=== PATIENT | male | born 1960 | race Caucasian/White ===

== ENCOUNTER 2021-04-22 11:16 | Inpatient (IN) | payer SELFPAY ==
[~2021-04-22] VITALS: Ht 170.2 cm; Wt 74.8 kg
[2021-04-22] MEDS ORDERED: SODIUM CHLORIDE 0.9% 1000ML 1,000 ML IV STA ×2 (11:28→13:10)
[2021-04-22] MEDS ORDERED: MORPHINE SULFATE INJ 4 MG/ML INJ 1ML IV NR (11:30)
[2021-04-22] MEDS ORDERED: ONDANSETRON HCL INJ 2MG/ML 2ML 2 MG/ML VIAL IV NR ×2 (11:30→13:10)
[2021-04-22] MEDS ORDERED: ONDANSETRON HCL INJ 2MG/ML 2ML 2 MG/ML VIAL ONE ×2 (11:46→13:17)
[2021-04-22 11:51] LABS: BASOPHILS # (AUTO) 0.1 (0.0-0.1); BASOPHILS % 0.7 % (0.0-1.0); EOSINOPHILS # (AUTO) 0.1 (0.0-0.4); EOSINOPHILS % 0.3 % (0.0-6.0); HEMATOCRIT 50.1 % (38.2-49.6); HEMOGLOBIN 16.5 g/dL (14.0-18.0); LYMPHOCYTES # (AUTO) 2.3 (1.0-3.2); LYMPHOCYTES % 13.6 % (18.0-39.1); MEAN CORPUSCULAR HGB CONC 32.9 g/dL (31-35); MEAN CORPUSCULAR VOLUME 91.1 fL (81-99); MONOCYTES # (AUTO) 0.7 (0.2-0.8); NEUTROPHILS # (AUTO) 13.5 (2.1-6.9); NEUTROPHILS % 80.8 % (38.7-80.0); PLATELET COUNT 463 x10e3/uL (140-360); RED CELL DISTRIBUTION WIDTH 13.4 % (11.7-14.4)
[2021-04-22 12:18] LABS: INR 0.9; PARTIAL THROMBOPLASTIN TIME 23.5 seconds (23.8-35.5); PROTHROMBIN TIME 12.3 seconds (11.9-14.5)
[2021-04-22 12:28] LABS: ALBUMIN 4.8 g/dL (3.5-5.0); ALBUMIN/GLOBULIN RATIO 1.2 (0.8-2.0); ANION GAP 23.7 mmol/L (8-16); CALCIUM 9.5 mg/dL (8.4-10.2); CREATININE, SERUM 1.52 mg/dL (0.72-1.25); POTASSIUM 3.7 mmol/L (3.5-5.1)
[2021-04-22] MEDS ORDERED: HYDROMORPHONE 1MG/1ML INJ IV ONE (12:30)
[2021-04-22 12:35] LABS: CREATINE KINASE MB 7.2 ng/mL (0-5.0)
[2021-04-22] MEDS ORDERED: FENTANYL CITRATE/PF 100MCG/2 ML INJ ONE (12:49)
[2021-04-22] MEDS ORDERED: MIDAZOLAM HCL 2 MG/2 ML VIAL ONE (12:49)
[2021-04-22] MEDS ORDERED: SODIUM CHLORIDE 0.9% 50ML 50 ML ONE (12:51)
[2021-04-22] MEDS ORDERED: IOPAMIDOL 370 MG/ML 200 ML INFUS..BTL INJ ONE (12:52)
[2021-04-22 12:59] LABS: CHOL/HDL RATIO 2.3 (3.9-4.7)
[2021-04-22] MEDS ORDERED: HYDROMORPHONE 1MG/1ML INJ IV NR (13:10)
[2021-04-22] MEDS ORDERED: PIPERACILLIN/TAZOBACTAM 3.375 GM in SODIUM CHLORIDE 0.9% 50ML 50 ML IV ONE (13:15)
[2021-04-22] MEDS ORDERED: POVIDONE IODINE 0.05% 0.05 % ML PO ONE (13:17)
[2021-04-22] MEDS ORDERED: LIDOCAINE HCL 2% LOCAL INJ 5 ML SDV VIAL INJ ONE (13:17)
[2021-04-22] MEDS ORDERED: GLYCOPYRROLATE INJ 0.2 MG/ML VIAL ONE (13:17)
[2021-04-22] MEDS ORDERED: DEXAMETHASONE SOD PHOS INJ 4 MG/ML VIAL ONE (13:17)
[2021-04-22] MEDS ORDERED: SEVOFLURANE INHAL SOLN 250 ML PEN BTL ONE (13:17)
[2021-04-22] MEDS ORDERED: PROPOFOL IV EMULSION 10 MG/ML 20 ML VIAL ONE (13:17)
[2021-04-22] MEDS ORDERED: NEOSTIGMINE 1 MG/ML 10ML VIAL ONE (13:17)
[2021-04-22] MEDS ORDERED: SUCCINYLCHOLINE CHLORIDE 20 MG/ML 10ML VIAL ONE (13:17)
[2021-04-22] MEDS ORDERED: ROCURONIUM BROMIDE 10 MG/ML 5ML VIAL IV ONE (13:17)
[2021-04-22] MEDS ORDERED: SODIUM CHLORIDE 0.9% 1000ML 1,000 ML IV SCH (13:30)
[2021-04-22 14:34] LABS: CLARITY,URINE CLEAR (CLEAR); COLOR,URINE YELLOW (YELLOW)
[2021-04-22 14:36] LABS: KETONES,URINE NEGATIVE (NEGATIVE); LEUKOCYTE ESTERASE ,URINE NEGATIVE (NEGATIVE); NITRITE,URINE NEGATIVE (NEGATIVE); PROTEIN,URINE DIPSTICK 1+ (NEGATIVE); URINE UROBILINOGEN 0.2 mg/dL (0.2 - 1)
[2021-04-22 14:37] LABS: BACTERIA,URINE RARE /HPF; EPITHELIAL CELLS,URINE FEW /LPF; RBC,URINE 0-5 /HPF (0-5); WBC,URINE (MAN) 0-5 /HPF (0-5)
[2021-04-22 14:38] LABS: AMPHETAMINES SCREEN,URINE NEGATIVE (NEGATIVE); BENZODIAZEPINES SCREEN,URINE NEGATIVE (NEGATIVE); PHENCYCLIDINE SCREEN,URINE NEGATIVE (NEGATIVE)
[2021-04-22] MEDS ORDERED: BUPIVACAINE HCL 0.5% INJ 30 ML VIAL INJ ONE (15:37)
[2021-04-22] MEDS: HYDROMORPHONE 1MG/1ML INJ IV PRN ×4 (15:58→23:44)
[2021-04-22] MEDS ORDERED: ACETAMINOPHEN 1000 MG/100 ML IV PRN (16:00)
[2021-04-22 16:49] VITALS: BP 169/80
[2021-04-22 16:54] VITALS: BP 169/80
[2021-04-22] MEDS: SODIUM CHLORIDE 0.9% 250ML IRRIG IR SCH ×3 (17:17→23:43)
[2021-04-22] MEDS: SODIUM CHLORIDE 0.9% 1000ML 1,000 ML IV SCH ×2 (17:17→23:32)
[2021-04-22] MEDS: PIPERACILLIN/TAZOBACTAM 3.375 GM in SODIUM CHLORIDE 0.9% 50ML 50 ML IV SCH ×2 (17:34→23:32)
[2021-04-22 18:37] LABS: CREATINE KINASE MB 5.5 ng/mL (0-5.0)
[2021-04-22 20:00] VITALS: BP 174/91
[2021-04-22 20:16] VITALS: BP_SYST 113; BP_SYST 174; BP_DIAS 71; BP_DIAS 91
[2021-04-22] MEDS ORDERED: LORAZEPAM INJ 2 MG/ML VIAL IV SCH (21:00)
[2021-04-22] MEDS ORDERED: DEXTROSE 50% SYRINGE 50 ML IV PRN (21:30)
[2021-04-22] MEDS ORDERED: MELATONIN 5 MG TABLET PO PRN (21:30)
[2021-04-22] MEDS ORDERED: DIPHENHYDRAMINE HCL 25 MG CAP PO PRN (21:30)
[2021-04-22] MEDS ORDERED: CHLORASEPTIC SPRAY 177 ML BTL MM PRN (21:30)
[2021-04-22] MEDS ORDERED: ALBUTEROL/IPRATROPIUM 3 ML NEB NEB PRN (21:30)
[2021-04-22] MEDS ORDERED: LIDOCAINE 4% PATCH TP PRN (21:30)
[2021-04-22] MEDS ORDERED: BENZONATATE 100 MG CAP PO PRN (21:30)
[2021-04-22] MEDS ORDERED: DOCUSATE SODIUM 100 MG CAP PO PRN (21:30)
[2021-04-22] MEDS ORDERED: ACETAMINOPHEN 325 MG TAB PO PRN (21:30)
[2021-04-22] MEDS ORDERED: SIMETHICONE 80 MG CHEW PO PRN (21:30)
[2021-04-22] MEDS ORDERED: HYDRALAZINE HCL 20 MG/ML VIAL IV PRN (21:30)
[2021-04-22] MEDS ORDERED: POTASSIUM CHLORIDE 20 MEQ TAB CR PO PRN (21:30)
[2021-04-23] VITALS (8 sets, daily range): BP systolic 144–170; BP diastolic 82–95
[2021-04-23 01:47] LABS: CREATINE KINASE MB 4.7 ng/mL (0-5.0)
[2021-04-23] MEDS: SODIUM CHLORIDE 0.9% 250ML IRRIG IR SCH ×6 (04:13→23:10)
[2021-04-23] MEDS: HYDROMORPHONE 1MG/1ML INJ IV PRN ×5 (05:28→21:01)
[2021-04-23] MEDS: SODIUM CHLORIDE 0.9% 1000ML 1,000 ML IV SCH ×2 (05:28→12:43)
[2021-04-23] MEDS: PIPERACILLIN/TAZOBACTAM 3.375 GM in SODIUM CHLORIDE 0.9% 50ML 50 ML IV SCH ×4 (05:28→23:10)
[2021-04-23 06:01] LABS: BASOPHILS # (AUTO) 0.1 (0.0-0.1); BASOPHILS % 0.3 % (0.0-1.0); HEMATOCRIT 43.8 % (38.2-49.6); HEMOGLOBIN 14.4 g/dL (14.0-18.0); LYMPHOCYTES # (AUTO) 1.2 (1.0-3.2); LYMPHOCYTES % 5.4 % (18.0-39.1); MEAN CORPUSCULAR HEMOGLOBIN 30.6 pg (28-32); MEAN CORPUSCULAR HGB CONC 32.9 g/dL (31-35); MEAN CORPUSCULAR VOLUME 93.2 fL (81-99); MONOCYTES % 4.5 % (4.4-11.3); NEUTROPHILS # (AUTO) 19.6 (2.1-6.9); NEUTROPHILS % 89.3 % (38.7-80.0); PLATELET COUNT 277 x10e3/uL (140-360); RED CELL DISTRIBUTION WIDTH 13.3 % (11.7-14.4)
[2021-04-23 06:30] LABS: ALBUMIN 3.2 g/dL (3.5-5.0); ALBUMIN/GLOBULIN RATIO 0.9 (0.8-2.0); CALCIUM 7.8 mg/dL (8.4-10.2); CREATININE, SERUM 0.92 mg/dL (0.72-1.25)
[2021-04-23 06:51] LABS: CREATINE KINASE MB 3.8 ng/mL (0-5.0)
[2021-04-23] MEDS: ONDANSETRON HCL INJ 2MG/ML 2ML 2 MG/ML VIAL IV PRN ×3 (08:42→16:51)
[2021-04-23] MEDS: DEXTROSE 5%/0.9% SOD CHL 1,000 ML IV SCH ×3 (15:00→23:10)
[2021-04-23] MEDS ORDERED: LORAZEPAM INJ 2 MG/ML VIAL IV ONE (21:00)
[2021-04-24] VITALS (8 sets, daily range): BP systolic 136–194; BP diastolic 76–99
[2021-04-24] MEDS: SODIUM CHLORIDE 0.9% 250ML IRRIG IR SCH ×6 (04:14→23:53)
[2021-04-24] MEDS: HYDROMORPHONE 1MG/1ML INJ IV PRN ×6 (04:20→21:17)
[2021-04-24] MEDS: PIPERACILLIN/TAZOBACTAM 3.375 GM in SODIUM CHLORIDE 0.9% 50ML 50 ML IV SCH ×4 (05:16→23:53)
[2021-04-24 07:43] LABS: BASOPHILS # (AUTO) 0.1 (0.0-0.1); BASOPHILS % 0.5 % (0.0-1.0); EOSINOPHILS # (AUTO) 0.1 (0.0-0.4); EOSINOPHILS % 0.5 % (0.0-6.0); HEMATOCRIT 44.9 % (38.2-49.6); LYMPHOCYTES # (AUTO) 1.2 (1.0-3.2); LYMPHOCYTES % 11.8 % (18.0-39.1); MEAN CORPUSCULAR HEMOGLOBIN 30.1 pg (28-32); MEAN CORPUSCULAR HGB CONC 33.4 g/dL (31-35); MEAN CORPUSCULAR VOLUME 90.2 fL (81-99); MONOCYTES # (AUTO) 0.5 (0.2-0.8); MONOCYTES % 4.9 % (4.4-11.3); NEUTROPHILS # (AUTO) 8.5 (2.1-6.9); NEUTROPHILS % 81.9 % (38.7-80.0); PLATELET COUNT 268 x10e3/uL (140-360); RED BLOOD COUNT 4.98 x10e6/uL (4.3-5.7); RED CELL DISTRIBUTION WIDTH 12.9 % (11.7-14.4)
[2021-04-24 07:59] LABS: ALBUMIN 3.3 g/dL (3.5-5.0); ALBUMIN/GLOBULIN RATIO 0.8 (0.8-2.0); ANION GAP 14.2 mmol/L (8-16); CALCIUM 8.7 mg/dL (8.4-10.2); CREATININE, SERUM 0.86 mg/dL (0.72-1.25); POTASSIUM 4.2 mmol/L (3.5-5.1)
[2021-04-24] MEDS: ONDANSETRON HCL INJ 2MG/ML 2ML 2 MG/ML VIAL IV PRN ×4 (08:15→18:24)
[2021-04-24] MEDS: DEXTROSE 5%/0.9% SOD CHL 1,000 ML IV SCH (08:47)
[2021-04-24] MEDS: LORAZEPAM INJ 2 MG/ML VIAL IV PRN (21:17)
[2021-04-24] MEDS: BISACODYL 10 MG SUPP PR SCH (21:43)
[2021-04-25] VITALS (8 sets, daily range): BP systolic 158–182; BP diastolic 92–106
[2021-04-25] MEDS: SODIUM CHLORIDE 0.9% 250ML IRRIG IR SCH ×4 (04:38→16:56)
[2021-04-25 05:06] LABS: BASOPHILS # (AUTO) 0.1 (0.0-0.1); BASOPHILS % 0.6 % (0.0-1.0); EOSINOPHILS # (AUTO) 0.3 (0.0-0.4); EOSINOPHILS % 3.2 % (0.0-6.0); HEMATOCRIT 43.8 % (38.2-49.6); HEMOGLOBIN 15.4 g/dL (14.0-18.0); LYMPHOCYTES # (AUTO) 1.3 (1.0-3.2); LYMPHOCYTES % 14.6 % (18.0-39.1); MEAN CORPUSCULAR HEMOGLOBIN 30.6 pg (28-32); MEAN CORPUSCULAR HGB CONC 35.2 g/dL (31-35); MEAN CORPUSCULAR VOLUME 87.1 fL (81-99); MONOCYTES # (AUTO) 0.5 (0.2-0.8); MONOCYTES % 5.8 % (4.4-11.3); NEUTROPHILS # (AUTO) 6.7 (2.1-6.9); NEUTROPHILS % 75.2 % (38.7-80.0); PLATELET COUNT 246 x10e3/uL (140-360); RED BLOOD COUNT 5.03 x10e6/uL (4.3-5.7); RED CELL DISTRIBUTION WIDTH 12.6 % (11.7-14.4)
[2021-04-25] MEDS: PIPERACILLIN/TAZOBACTAM 3.375 GM in SODIUM CHLORIDE 0.9% 50ML 50 ML IV SCH ×4 (05:13→23:42)
[2021-04-25] MEDS: DEXTROSE 5%/0.9% SOD CHL 1,000 ML IV SCH ×2 (05:13→17:44)
[2021-04-25] MEDS: HYDROMORPHONE 1MG/1ML INJ IV PRN ×6 (05:17→21:38)
[2021-04-25 05:43] LABS: ANION GAP 11.2 mmol/L (8-16); CALCIUM 8.2 mg/dL (8.4-10.2); CREATININE, SERUM 0.84 mg/dL (0.72-1.25); POTASSIUM 3.2 mmol/L (3.5-5.1)
[2021-04-25] MEDS: BISACODYL 10 MG SUPP PR SCH (08:00)
[2021-04-25] MEDS: ONDANSETRON HCL INJ 2MG/ML 2ML 2 MG/ML VIAL IV PRN ×4 (08:39→18:00)
[2021-04-25] MEDS: LORAZEPAM INJ 2 MG/ML VIAL IV PRN (21:55)
[2021-04-26] VITALS (8 sets, daily range): BP systolic 147–185; BP diastolic 93–104
[2021-04-26 05:10] LABS: BASOPHILS # (AUTO) 0.1 (0.0-0.1); BASOPHILS % 0.6 % (0.0-1.0); EOSINOPHILS # (AUTO) 0.4 (0.0-0.4); EOSINOPHILS % 5.4 % (0.0-6.0); HEMATOCRIT 44.1 % (38.2-49.6); HEMOGLOBIN 15.2 g/dL (14.0-18.0); LYMPHOCYTES # (AUTO) 1.6 (1.0-3.2); LYMPHOCYTES % 20.4 % (18.0-39.1); MEAN CORPUSCULAR HEMOGLOBIN 29.8 pg (28-32); MEAN CORPUSCULAR HGB CONC 34.5 g/dL (31-35); MEAN CORPUSCULAR VOLUME 86.5 fL (81-99); MONOCYTES # (AUTO) 0.7 (0.2-0.8); MONOCYTES % 8.2 % (4.4-11.3); NEUTROPHILS # (AUTO) 5.2 (2.1-6.9); NEUTROPHILS % 64.8 % (38.7-80.0); PLATELET COUNT 274 x10e3/uL (140-360); RED CELL DISTRIBUTION WIDTH 12.4 % (11.7-14.4)
[2021-04-26 05:34] LABS: ANION GAP 13.7 mmol/L (8-16); CALCIUM 8.4 mg/dL (8.4-10.2); CREATININE, SERUM 0.93 mg/dL (0.72-1.25); POTASSIUM 3.7 mmol/L (3.5-5.1)
[2021-04-26] MEDS: HYDROMORPHONE 1MG/1ML INJ IV PRN ×5 (06:41→21:27)
[2021-04-26] MEDS: PIPERACILLIN/TAZOBACTAM 3.375 GM in SODIUM CHLORIDE 0.9% 50ML 50 ML IV SCH ×4 (06:41→23:58)
[2021-04-26] MEDS: DEXTROSE 5%/0.9% SOD CHL 1,000 ML IV SCH ×3 (08:11→20:00)
[2021-04-26] MEDS: LOSARTAN POTASSIUM 100 MG TAB PO SCH (12:02)
[2021-04-26] MEDS: LORAZEPAM INJ 2 MG/ML VIAL IV PRN (21:26)
[2021-04-27] VITALS: BP 151/109
[2021-04-27 04:00] VITALS: BP 149/116
[2021-04-27] MEDS: HYDROMORPHONE 1MG/1ML INJ IV PRN ×2 (04:20→08:28)
[2021-04-27] MEDS: PIPERACILLIN/TAZOBACTAM 3.375 GM in SODIUM CHLORIDE 0.9% 50ML 50 ML IV SCH ×3 (05:12→18:04)
[2021-04-27] MEDS: DEXTROSE 5%/0.9% SOD CHL 1,000 ML IV SCH (05:15)
[2021-04-27 07:25] VITALS: BP 133/88
[2021-04-27] MEDS: ONDANSETRON HCL INJ 2MG/ML 2ML 2 MG/ML VIAL IV PRN (08:27)
[2021-04-27] MEDS: LOSARTAN POTASSIUM 100 MG TAB PO SCH (08:59)
[2021-04-27 11:09] VITALS: BP 143/87
[2021-04-27] MEDS: ACETAMINOPHEN/CODEINE 300MG - 30MG TAB PO PRN ×2 (11:54→18:04)
[2021-04-27 16:02] VITALS: BP 148/87
== END 2021-04-27 18:20 | disposition home or self-care (01) | DRG 329 ==
LOC: ER 14:04 → ERHOLD 14:13 → MED/SURG 16:23
PROVIDERS: ADMIT Internal Medicine; ATTEND Internal Medicine
PROC: 3E1M38Z Irrigation of Peritoneal Cavity using Irrigating Substance, Percutaneous Approach (ICD-10-PCS; 2021-04-22)
PROC: 0DU907Z Supplement Duodenum with Autologous Tissue Substitute, Open Approach (ICD-10-PCS; principal; 2021-04-22 14:30)
DX: K26.1 Acute duodenal ulcer with perforation (principal); K65.8 Other peritonitis; G89.4 Chronic pain syndrome; K29.80 Duodenitis without bleeding; K29.70 Gastritis, unspecified, without bleeding; Z79.1 Long term (current) use of non-steroidal anti-inflammatories (NSAID); Z20.822 Contact with and (suspected) exposure to COVID-19
CPT/HCPCS: 36415; 71045; 74177; 80048; 80053; 80061; 80307; 81001; 82150; 82550; 82553; 82948; 83690; 83735; 84484; 85025; 85610; 85730; 86850; 86900; 87040; 93005; 99284; J0330; J0360; J1100; J1170; J2001; J2060; J2250; J2270; J2405; J2543; J2710; J3010; J7030; J7042; Q9967; U0002